=== PATIENT | male | born 1995 | race Caucasian/White ===

== ENCOUNTER 2018-07-20 11:37 | Outpatient (CLI) | payer OTHER | END 2018-07-20 13:33 | disposition home or self-care (01) | LOC: LAB 11:37 | DX: D68.8 Other specified coagulation defects (principal) ==

== ENCOUNTER 2022-03-12 05:57 | Day surgery (SDC) | payer OTHER ==
[~2022-03-12] VITALS: Ht 172.7 cm; Wt 70.3 kg
[2022-03-12] MEDS ORDERED: NEURONTIN300 MG PO (13:36)
[2022-03-12] MEDS ORDERED: COLACE100 MG PO (13:36)
[2022-03-12] MEDS ORDERED: PERCOCET 5-3251 EACH PO (13:36)
== END 2022-03-12 18:25 | disposition home or self-care (01) ==
LOC: CIR.AMB 05:57
PROVIDERS: ATTEND Surgery
DX: K62.89 Other specified diseases of anus and rectum (principal); K64.8 Other hemorrhoids; Z88.8 Allergy status to other drugs, medicaments and biological substances; K64.4 Residual hemorrhoidal skin tags; K64.1 Second degree hemorrhoids; Z20.822 Contact with and (suspected) exposure to COVID-19; F12.90 Cannabis use, unspecified, uncomplicated